=== PATIENT | male | born 1980 | race Two or more races ===

== ENCOUNTER 2021-02-13 14:28 | Emergency (ER) | payer MEDICAID, OTHER ==
[~2021-02-13] VITALS: Ht 182.9 cm; Wt 104.3 kg
[2021-02-13 14:37] VITALS: BP 132/78
== END 2021-02-13 15:18 | disposition left against medical advice (07) ==
LOC: EDBD 14:28 → ER 14:28
DX: L02.212 Cutaneous abscess of back [any part, except buttock and flank] (principal); Z53.21 Procedure and treatment not carried out due to patient leaving prior to being seen by health care provider